=== PATIENT | male | born 1950 | race Caucasian/White ===

== ENCOUNTER 2017-02-10 15:59 | Emergency (ER) | payer MEDICARE ==
[~2017-02-10] VITALS: Ht 172.7 cm; Wt 97.8 kg
[~2017-02-10 15:59] MED LIST: LISI1TAB5 PO; TRAM50TA2 PO
[2017-02-10] MEDS ORDERED: OXYcodone/APAP 5/325MG TABLET PO ONE (16:30)
[2017-02-10] MEDS ORDERED: KETOROLAC 30 MG/1 ML IM ONE (16:30)
[2017-02-10] MEDS ORDERED: OXYcodone/APAP 5/325MG TABLET ONE (16:41)
[2017-02-10] MEDS ORDERED: KETOROLAC 30 MG/1 ML ONE (16:41)
[2017-02-10 17:02] VITALS: BP 138/88
== END 2017-02-10 17:04 | disposition home or self-care (01) ==
LOC: ED 16:58
DX: Z76.0 Encounter for issue of repeat prescription (principal); M51.36 Other intervertebral disc degeneration, lumbar region; M54.16 Radiculopathy, lumbar region; I10 Essential (primary) hypertension
CPT/HCPCS: 96372; 99283; J1885

== ENCOUNTER 2017-02-27 10:05 | Emergency (ER) | payer OTHER, MEDICARE ==
[~2017-02-27] VITALS: Ht 172.7 cm; Wt 99.9 kg
[2017-02-27 10:13] VITALS: BP 122/82
[2017-02-27] MEDS ORDERED: KETOROLAC 30 MG/1 ML IM ONE (11:00)
== END 2017-02-27 13:04 | disposition home or self-care (01) ==
LOC: ED 12:37
DX: G89.29 Other chronic pain (principal); M54.5 Low back pain; M25.562 Pain in left knee; I10 Essential (primary) hypertension
CPT/HCPCS: 99284

== ENCOUNTER 2017-03-03 15:06 | Emergency (ER) | payer OTHER, MEDICARE ==
[~2017-03-03] VITALS: Ht 172.7 cm; Wt 100.7 kg
[2017-03-03 15:07] VITALS: BP 161/89
== END 2017-03-03 16:00 | disposition home or self-care (01) ==
LOC: ED 15:52
DX: Z76.0 Encounter for issue of repeat prescription (principal); G89.29 Other chronic pain; M54.5 Low back pain; I10 Essential (primary) hypertension
CPT/HCPCS: 99283

== ENCOUNTER 2017-03-06 12:12 | Emergency (ER) | payer OTHER, MEDICARE ==
[~2017-03-06] VITALS: Ht 172.7 cm; Wt 101.1 kg
[2017-03-06 12:13] VITALS: BP 159/99
== END 2017-03-06 13:03 | disposition home or self-care (01) ==
LOC: ED 12:57
DX: S33.5XXA Sprain of ligaments of lumbar spine, initial encounter (principal); I10 Essential (primary) hypertension; X58.XXXA Exposure to other specified factors, initial encounter; Y93.89 Activity, other specified; Y92.89 Other specified places as the place of occurrence of the external cause; Y99.9 Unspecified external cause status
CPT/HCPCS: 99283

== ENCOUNTER 2017-04-18 10:21 | Emergency (ER) | payer OTHER, MEDICARE ==
[~2017-04-18] VITALS: Ht 172.7 cm; Wt 101.0 kg
[2017-04-18 10:24] VITALS: BP 165/117
[2017-04-18] MEDS ORDERED: DIPH,PERTUSS(ACELL),TET VAC/PF 0.5 ML IM-VACC ONE ×2 (11:00→11:23)
== END 2017-04-18 11:31 | disposition home or self-care (01) ==
LOC: ED 10:32
DX: S00.03XA Contusion of scalp, initial encounter (principal); I10 Essential (primary) hypertension; W22.8XXA Striking against or struck by other objects, initial encounter; Y93.89 Activity, other specified; Y92.89 Other specified places as the place of occurrence of the external cause; Y99.0 Civilian activity done for income or pay
CPT/HCPCS: 90471; 90715

== ENCOUNTER 2017-06-27 10:46 | Emergency (ER) | payer OTHER, MEDICARE ==
[~2017-06-27] VITALS: Ht 172.7 cm; Wt 99.5 kg
[2017-06-27] MEDS ORDERED: OXYcodone/APAP 5/325MG TABLET PO ONE (12:00)
[2017-06-27] MEDS ORDERED: METHOCARBAMOL 750 MG TABLET PO ONE (12:00)
[2017-06-27] MEDS ORDERED: METHOCARBAMOL 750 MG TABLET ONE (12:08)
[2017-06-27] MEDS ORDERED: OXYcodone/APAP 5/325MG TABLET ONE (12:08)
[2017-06-27 12:52] VITALS: BP 151/90
== END 2017-06-27 12:54 | disposition home or self-care (01) ==
LOC: ED 11:56
DX: M54.41 Lumbago with sciatica, right side (principal); I10 Essential (primary) hypertension
CPT/HCPCS: 99284; J7512